=== PATIENT | female | born 1960 | race Asian ===

== ENCOUNTER → 2020-09-16 | Outpatient (CLI) | payer OTHER | LOC: COL.PUL 10:33 | DX: R06.02 Shortness of breath (principal) ==

== ENCOUNTER 2021-06-21 07:22 | Day surgery (SDC) | payer OTHER ==
[2021-06-21] VITALS (112 sets, daily range): BP systolic 113–156; BP diastolic 63–88; PULSE 55–75; TEMP 98.2; O2SAT 93–99
[~2021-06-21] VITALS: Ht 147.3 cm; Wt 82.6 kg
[2021-06-21 08:44] LABS: HEMATOCRIT 43.2 % (37.0-47.0); HEMOGLOBIN 14.1 g/dl (12.5-16.0); MEAN CELL VOLUME 89 fl (80.0-100.0); MEAN CORPUSCULAR HEMOGLOBIN 29 pg (27-31); MEAN CORPUSCULAR HGB CONC 33 g/dl (33.0-37.0); MEAN PLATELET VOLUME 10.5 fl (7.4-10.4); PLATELET COUNT 284 K/mm3 (130-400); RED BLOOD COUNT 4.84 M/mm3 (4.10-5.30); REDCELL DISTRIBUTION WIDTH-CV 13.1 % (11.5-14.5)
[2021-06-21 08:45] LABS: INR 1.1 (0.8-3.0); PROTHROMBIN TIME 12.5 SECONDS (9.7-12.8)
[2021-06-21 08:47] LABS: PARTIAL THROMBOPLASTIN TIME 32.7 SECONDS (26.0-37.0)
[2021-06-21 08:51] LABS: CALCIUM 8.7 mg/dL (8.4-10.2); CREATININE, serum 0.84 mg/dL (0.57-1.11)
--- NOTE | 2021-06-21 08:59 | NUR ---
SEE MERGE FOR ALL MEDICATION ADMINISTRATION TIMES/DOSAGES AND INTRA/POST PROCEDURE SEDATION ASSESSMENTS. PRE PROCEDURE ASSESSMENT COMPLETED IN EXPRESS BY THIS RN.
--- NOTE | 2021-06-21 09:17 | NUR ---
Premades given as directed.
[2021-06-21] MEDS ORDERED: PROAIR HFA0.09 MG/AC IH (09:25)
[2021-06-21] MEDS ORDERED: RT ALBUTER2.5 MG/0.5 IH (09:28)
[2021-06-21] MEDS ORDERED: ASPIRIN 81M81 MG/TA2 PO (09:29)
[2021-06-21] MEDS ORDERED: VITAMIN C500 MG PO (09:29)
[2021-06-21] MEDS ORDERED: ZYRTEC 10MG10 MG PO (09:30)
[2021-06-21] MEDS ORDERED: RT ADVAIR 228 DISKUS IH (09:31)
[2021-06-21] MEDS ORDERED: GLUCOPHAGE500 MG/TAB PO (09:31)
[2021-06-21] MEDS ORDERED: SINGULAIR 110 MG/TAB PO (09:32)
[2021-06-21] MEDS ORDERED: MULTI VITAMINS1 TAB PO (09:32)
[2021-06-21] MEDS ORDERED: VITAMIN D 400400 IU PO (09:34)
--- NOTE | 2021-06-21 14:30 | NUR ---
Discharge instructions given to pt.Pt verbalizes understanding.INT removed,catheter tip intact.All air released from band in 2-3 ml incriments.Right radial site observed to be soft,no bleeding,dressing clean,dry,intact.Pt escorted out via wheelcair by this nurse.
== END 2021-06-21 14:56 ==
LOC: COL.CAR 07:22
PROVIDERS: Internal Medicine Cardiovascular Disease
DX: R07.89 Other chest pain (principal); E66.9 Obesity, unspecified; G47.00 Insomnia, unspecified; K21.9 Gastro-esophageal reflux disease without esophagitis; R94.39 Abnormal result of other cardiovascular function study; J45.909 Unspecified asthma, uncomplicated; Z68.30 Body mass index [BMI] 30.0-30.9, adult; Z86.16 Personal history of COVID-19; Z79.899 Other long term (current) drug therapy
CPT/HCPCS: J1200; J1644; J2250; J2930; J3010; Q9967

== ENCOUNTER 2023-07-25 10:00 | Day surgery (SDC) | payer OTHER ==
[~2023-07-25] VITALS: Ht 147.3 cm; Wt 79.2 kg
[2023-07-25] VITALS (10 sets, daily range): BP systolic 111–151; BP diastolic 66–84; PULSE 60–72; TEMP 97.6
[~2023-07-25 10:00] MED LIST: ASPIRIN 81M81 MG/TA2 PO; GLUCOPHAGE500 MG/TAB PO; MULTI VITAMINS1 TAB PO; PROAIR HFA0.09 MG/AC IH; RT ADVAIR 228 DISKUS IH; RT ALBUTER2.5 MG/0.5 IH; SINGULAIR 110 MG/TAB PO; VITAMIN C500 MG PO; VITAMIN D 400400 IU PO; ZYRTEC 10MG10 MG PO
[2023-07-25] MEDS ORDERED: 1/2 NS 1,000 ML IV SCH (10:45)
[2023-07-25] MEDS ORDERED: PREDNISONE 40 MG PO ONE (10:45)
[2023-07-25] MEDS ORDERED: diphenhydrAMINE 50 MG/ML 1 ML VIAL IV ONE (10:45)
[2023-07-25] MEDS ORDERED: Clopidogrel 300 MG DOSE (75 mg x 4 tabs) PO ONE (10:45)
[2023-07-25 10:56] LABS: HEMATOCRIT 45.3 % (37.0-47.0); HEMOGLOBIN 14.8 g/dl (12.5-16.0); MEAN CELL VOLUME 90 fl (80.0-100.0); MEAN CORPUSCULAR HEMOGLOBIN 29 pg (27-31); MEAN CORPUSCULAR HGB CONC 33 g/dl (33.0-37.0); MEAN PLATELET VOLUME 10.6 fl (7.4-10.4); PLATELET COUNT 333 K/mm3 (130-400); RED BLOOD COUNT 5.03 M/mm3 (4.10-5.30); REDCELL DISTRIBUTION WIDTH-CV 13.3 % (11.5-14.5)
[2023-07-25 11:06] LABS: INR 1.1 (0.8-3.0); PROTHROMBIN TIME 12.1 SECONDS (9.7-12.8)
[2023-07-25 11:14] LABS: PARTIAL THROMBOPLASTIN TIME 33.8 SECONDS (26.0-37.0)
[2023-07-25 11:27] LABS: CALCIUM 9.6 mg/dL (8.4-10.2); CREATININE, serum 0.89 mg/dL (0.57-1.11); POTASSIUM 4.5 mmol/L (3.5-4.5)
[2023-07-25] MEDS ORDERED: TYLENOL 325MG325 MG PO (12:14)
[2023-07-25] MEDS ORDERED: TESSALON PERLE200 MG PO (12:15)
[2023-07-25] MEDS ORDERED: BENADRYL25 M2 PO (12:16)
[2023-07-25] MEDS ORDERED: CELEBREX 1100 MG/CAP PO (12:16)
[2023-07-25] MEDS ORDERED: MUCINEX 60600 MG/TA1 PO (12:17)
[2023-07-25] MEDS ORDERED: PATADAY5 ML OP (12:17)
--- NOTE | 2023-07-25 13:23 | NUR ---
SEE MERGE FOR PROCEDURE DOCUMENTATION. H&P TO BE DICTATED PRIOR TO PROCEDURE START
[2023-07-25] MEDS ORDERED: Iohexol 350 - 100 ML VIAL INCOR ONE (14:14)
[2023-07-25] MEDS ORDERED: Nitroglycerin 100 MCG/ML (Cath Lab) 10 ML VIAL IA SCH (14:15)
[2023-07-25] MEDS ORDERED: Heparin 1,000 UNITS/ML 10 ML Multi-Dose VIAL IA SCH (14:16)
[2023-07-25] MEDS ORDERED: fentaNYL 50 MCG/ML 2 ML VIAL IV SCH (14:17)
[2023-07-25] MEDS ORDERED: Midazolam 2 MG/2 ML VIAL IV SCH (14:18)
--- NOTE | 2023-07-25 14:42 | NUR ---
PT ALERT AND ORIENTED, VSS. PATIENT TRANSFERRED TO BED VIA SLIDEBOARD AND TRANSPORTED TO [place] [id number], [facility] AT BEDSIDE. VITAL SIGNS TAKEN ON ARRIVAL, VSS. PATIENT REMAINS ON 1 L/MIN O2 PER BASELINE. TRANSFER OF CARE TO [facility]EDRO[facility]. RADIAL SITE ASSESSED, REMAINS CDI. CALL LIGHT WITHIN REACH, BED IN LOWEST POSITION, X3 BEDRAILS IN PLACE.
[2023-07-25] MEDS ORDERED: Naloxone 0.4 MG/ML VIAL IV PRN (15:00)
--- NOTE | 2023-07-25 17:15 | NUR ---
PT TOLERATED RECOVERY PERIOD WELL. VS REMAINED WITHIN NORMAL LIMITS. IV DISCONTINUED. PT FREE FROM ACUTE CONCERNS AND COMPLAINTS AND VERBALIZED UNDERSTANDING OF DISCHARGE INSTRUCTIONS. PT ASSISTED TO MAIN LOBBY VIA WHEELCHAIR. RIGHT RADIAL DRESSING CLEAN DRY AND INTACT UPON DISCHARGE. PT FREE FROM SIGNS OF BLEEDING AND HEMATOMA.
== END 2023-07-25 17:16 | disposition home or self-care (01) ==
LOC: COL.CAR 10:00
PROVIDERS: Internal Medicine Interventional Cardiology
DX: I25.10 Atherosclerotic heart disease of native coronary artery without angina pectoris (principal); U09.9 Post COVID-19 condition, unspecified; R07.89 Other chest pain; R06.00 Dyspnea, unspecified; R94.39 Abnormal result of other cardiovascular function study; Z99.81 Dependence on supplemental oxygen
CPT/HCPCS: C1769; J1200; J1644; J2250; J3010; J7512; Q9967